=== PATIENT | male | born 1950 | race Caucasian/White ===

== ENCOUNTER 2024-09-17 10:04 | Outpatient (CLI) | payer MEDICARE, SELFPAY | END 2024-09-17 10:05 | disposition home or self-care (01) | LOC: RAD 09-22 06:27 | PROVIDERS: PCP Family Medicine; Visit Provider Internal Medicine Cardiovascular Disease | DX: R94.31 Abnormal electrocardiogram [ECG] [EKG] (principal); R00.1 Bradycardia, unspecified; I45.10 Unspecified right bundle-branch block; I49.3 Ventricular premature depolarization; I45.4 Nonspecific intraventricular block; F17.200 Nicotine dependence, unspecified, uncomplicated; R06.02 Shortness of breath; R07.9 Chest pain, unspecified; R00.2 Palpitations; Z87.898 Personal history of other specified conditions | CPT/HCPCS: 99204 ==

== ENCOUNTER → 2024-09-17 10:11 | Outpatient (BNVA) | payer MEDICARE, SELFPAY | PROVIDERS: PCP Family Medicine; Visit Provider Internal Medicine Cardiovascular Disease | DX: R07.9 Chest pain, unspecified (principal) | CPT/HCPCS: 93005 ==

== ENCOUNTER 2024-10-29 08:58 | Outpatient (CLI) | payer MEDICARE, SELFPAY ==
--- NOTE | 2024-10-29 | ECG_ITS ---
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 Interpretive Statements EXERCISE MIBI EXERCISE DATA: The patient was exercised by Miguel protocol. Baseline heart rate was 52 beats per minute. Baseline blood pressure was 128/81 millimeters of mercury. Maximal predicted heart rate was 147 beats per minute. Maximum heart rate achieved was 133, which was 90% of the maximum predicted heart rate. Maximum blood pressure was 181/75 millimeters of mercury. Total exercise time was 7 minutes and 31 seconds. Maximum METs achieved was 10.2. The reason for ending the test was completion of protocol. The patient complained of shortness of breath during the stress test, which then resolved at the end of the test. ELECTROCARDIOGRAM: BASELINE: Showed sinus rhythm, right bundle branch block, no significant ST-T changes at the baseline noted. [] EXERCISE: At the peak exercise level, [] No significant ST-T changes suggestive of ischemia noted. [] RECOVERY: During the recovery period, heart rate dropped appropriately. No significant ST-T changes in the recovery suggestive of ischemia noted. [] CONCLUSION: 1. Exercise capacity is good. 2. Heart rate response was appropriate 3. Blood pressure response was appropriate 4. Symptoms not suggestive of ischemia. 5. Electrocardiogram portion of the stress test was not suggestive of ischemia. 6. Nuclear scan will be documented separately. Electronically Signed On 11-09-2024 11:20:45 CDT by Erwin Connelly M.D. [email or web address]
[2024-10-29 09:21] VITALS: BMI 32.1
--- NOTE | 2024-10-29 09:25 | NMCV_ITS ---
NM goran perf SPECT r/s* [id number] José Fontenot Age: 74 Gender: M : 1950 Exam Date: 10/29/2024 09:59 Ordering Phys: Yael Avila MD ([email or web address]) Technologist: ANA Collier Exam Location: [facility] Indications: cp STRESS TEST Please see separate stress test report in [facility] for full findings IMAGE PROTOCOL Rest/Stress 1 Exercise Day Radiopharmaceutical Dose (mCi) Administration Site Administered by Rest: Tc-99m 10.4 IV ANA Collier Sestamibi Stress:Tc-99m 33 IV ANA Collier Sestamibi Rest: 29-Oct-2024 60 Discovery 630 Stress: 29-Oct-2024 30 Discovery 630 Radiopharmaceutical was injected at 86 % maximum heart rate. Images obtained in supine and prone position. SPECT RESULTS Technical Quality: Good Raw Data Analysis: Normal Image Corrections: No attenuation or motion correction applied Summed Stress Score: 3 Summed Rest Score: 0 Summed Difference Score: 3 PERFUSION FINDINGS There is reduced radiotracer uptake seen in the inferior and inferolateral way with mostly fixed defect. On prone imaging perfusion abnormality resolves. This is consistent with attenuation artifact. FUNCTIONAL RESULTS (calculated via Gated SPECT) Stress Image LV EF (%): 57 Stress EDV (mL):137 TID: 0.86 Stress ESV (mL):59 FUNCTIONAL FINDINGS: There is normal left ventricular systolic function. IMPRESSIONS 1. Attenuation artifact seen in inferior and inferolateral way. No evidence of ischemia. 2. LV systolic function is normal. Erwin Connelly MD (Electronically Signed) Final Date: 29 October 2024 11:28 S
[2024-10-29 10:45] VITALS: BP 132/64; PULSE 68
--- NOTE | 2024-10-29 14:15 | USCV_ITS ---
Иванjuan José Age: 74 Gender: M : 1950 Exam Date: 10/29/2024 15:01 Ordering Phys: Yael Avila MD ([email or web address]) Technologist: Ovidio Torres [place] [facility] [place]: sob BP: 132 / 64 HR: 56 Rhythm: Other Technical Quality: Adequate MEASUREMENTS (Male / Female) Normal Values 2D ECHO LV Diastolic Diameter PLAX 5.2 cm 4.2 - 5.9 / 3.9 - 5.3 cm IVS Diastolic Thickness 0.8 cm 0.6 - 1.0 / 0.6 - 0.9 cm IVS Systolic Thickness 1.3 cm LVPW Diastolic Thickness 1.4 cm 0.6 - 1.0 / 0.6 - 0.9 cm LVPW Systolic Thickness 1.6 cm LVOT Diameter 2.1 cm LV Ejection Fraction 2D Teich 48.5 % LV Ejection Fraction MOD 4C 51.1 % LV Ejection Fraction MOD 2C 50.5 % LV Ejection Fraction 2C AL 50.1 % LA Diameter 3.1 cm RA Systolic Volume 4C AL 51.2 ml RA Systolic Volume 4C MOD 51.7 ml LA Sys Volume AL 58.8 cm cubed LA Sys Volume Index AL 31.7 cm cubed/m squared Aorta at Sinotubular Diameter 3.0 cm IVC Diameter 1.9 cm M-MODE LA Ao Ratio MM 1.0 AV Cusp Separation MM 2.0 cm DOPPLER AV Peak Velocity 151.0 cm/s LVOT Peak Velocity 95.0 cm/s AV Area Cont Eq vti 2.3 cm squared AV Area Cont Eq pk 2.2 cm squared MV Peak Velocity 69.0 cm/s MV Area PHT 4.2 cm squared Mitral E to A Ratio 0.7 TV Peak Velocity 352.5 cm/s TR Peak Velocity 362.0 cm/s TR Peak Gradient 52.4 mmHg TR Mean Velocity 258.0 cm/s TR Mean Gradient 30.3 mmHg TR Velocity Time Integral 103.8 cm PV Peak Velocity 112.0 cm/s RV Ejection Time 0.3 s FINDINGS Left Ventricle Normal left ventricular size, systolic function and wall thickness, with no regional wall motion abnormalities. Left ventricular ejection fraction is estimated at 60 %. Grade I/IV diastolic dysfunction (abnormal relaxation filling pattern), normal to mildly elevated filling pressures. Right Ventricle The right ventricle is normal in size and function. Right Atrium The right atrium is normal in size. Left Atrium The left atrium is normal in size. Mitral Valve Structurally normal mitral valve without significant stenosis or prolapse. There is no mitral regurgitation. Aortic Valve Mild aortic valve calcification. No aortic valve stenosis. Trace aortic valve regurgitation. Tricuspid Valve Trace tricuspid valve regurgitation. Pulmonic Valve Structurally normal pulmonic valve without significant stenosis. There is no pulmonic regurgitation. Pericardium Normal pericardium without effusion. Aorta Normal ascending aorta dimension. IVC The inferior vena cava appears normal. CONCLUSIONS Normal left ventricular size, systolic function and wall thickness, with no regional wall motion abnormalities. Left ventricular ejection fraction is estimated at 60 %. Grade I/IV diastolic dysfunction (abnormal relaxation filling pattern), normal to mildly elevated filling pressures. There is no pericardial effusion. No significant valve abnormalities. Right atrial pressure is around 5 mm of mercury. Yael Avila MD (Electronically Signed) Final Date: 30 October 2024 19:40 S
== END 2024-10-29 08:59 | disposition home or self-care (01) ==
PROVIDERS: PCP Family Medicine; Visit Provider Internal Medicine Cardiovascular Disease
DX: R06.02 Shortness of breath (principal); R93.1 Abnormal findings on diagnostic imaging of heart and coronary circulation; I35.8 Other nonrheumatic aortic valve disorders
CPT/HCPCS: 36415; 78452; 93017; 93306; A9500

== ENCOUNTER → 2025-01-12 09:00 | Outpatient (BNVA) | payer MEDICARE, SELFPAY | PROVIDERS: PCP Family Medicine; Visit Provider Family Medicine | DX: E55.9 Vitamin D deficiency, unspecified (principal); R00.1 Bradycardia, unspecified; I45.4 Nonspecific intraventricular block; I45.10 Unspecified right bundle-branch block; Z12.5 Encounter for screening for malignant neoplasm of prostate; E78.2 Mixed hyperlipidemia; R79.89 Other specified abnormal findings of blood chemistry | CPT/HCPCS: 80053; 80061; 82306; 82607; 83735; 84443; 85025; G0103 ==

== ENCOUNTER 2025-02-28 10:21 | Outpatient (CLI) | payer MEDICARE, SELFPAY ==
--- NOTE | 2025-02-28 11:15 | CT_ITS ---
WS: [id number] LDCT LUNG CANCER SCREENING TECHNIQUE: Noncontrast CT of the chest with coronal and sagittal reformatted images. CLINICAL INFORMATION: F17.210 - Nicotine dependence, cigarettes, uncomplicated COMPARISON: None. DLP: 63.49 mGy.cm DIvol: Mean CTDIvol: 1.10 (mGy) All CT scans at [facility] use at least one of these dose optimization techniques: automated exposure control; mA and/or kV adjustment per patient size (includes targeted exams where dose is matched to clinical indication); or iterative reconstruction. FINDINGS: Numerous subcentimeter noncalcified pulmonary nodules scattered throughout both lungs the largest slightly irregular RIGHT middle lobe measuring 7.6 mm. Recommend 6-month follow-up. No prior comparisons. Aortic calcification. Coronary calcification. No mediastinal or hilar lymphadenopathy. No axillary lymphadenopathy. Calcified precarinal and RIGHT hilar lymph nodes. Calcified subcarinal lymph nodes. Adrenal glands are normal. CT/CT lung screening [id number] IMPRESSION: Slightly irregular nodule RIGHT middle lobe measuring 7.6 mm. Recommend 6-month follow-up. LUNG-RADS: 3-Probably Benign FOLLOW UP: 6 Month LDCT
== END 2025-02-28 10:22 | disposition home or self-care (01) ==
LOC: RAD 10:22
PROVIDERS: PCP Family Medicine; Visit Provider Family Medicine
DX: Z12.2 Encounter for screening for malignant neoplasm of respiratory organs (principal); F17.210 Nicotine dependence, cigarettes, uncomplicated; R91.1 Solitary pulmonary nodule; I70.0 Atherosclerosis of aorta; I25.84 Coronary atherosclerosis due to calcified coronary lesion; R59.0 Localized enlarged lymph nodes
CPT/HCPCS: 71271